=== PATIENT | female | born 1960 | race African-American/Black ===

== ENCOUNTER 2022-04-15 23:54 | Emergency (ER) | payer OTHER, MEDICAID ==
[~2022-04-15] VITALS: Ht 165.1 cm; Wt 59.0 kg
[2022-04-16] MEDS ORDERED: SODIUM CHLORIDE 0.9% 1,000 ML IV ONE (00:30)
[2022-04-16 00:50] LABS: BASOPHILS % 1.2 % (0.0-2.0); EOSINOPHILS % 2.1 % (0.0-5.0); HEMATOCRIT. 31.2 % (36.0-48.0); HEMOGLOBIN. 9.8 g/dL (12.0-16.0); LYMPHOCYTES % 32.1 % (20.0-50.0); MEAN CORPUSCULAR HEMOGLOBIN 26.2 pg (28.0-32.0); MEAN CORPUSCULAR VOLUME 83.5 fL (81.0-99.0); MEAN PLATELET VOLUME 9.5 fl (7.4-10.4); MONOCYTES % 5.9 % (2.0-8.0); NEUTROPHILS % 58.7 % (40.0-76.0); PLATELET 393 x1000/uL (130-400); RED BLOOD CELL COUNT 3.73 mill/uL (4.2-5.4); RED CELL DISTRIBUTION WIDTH 16.6 % (11.6-14.6)
[2022-04-16 00:57] LABS: CHLORIDE 101 mEq/L (98-107)
[2022-04-16 01:05] LABS: BETA HYDROXYBUTYRATE 0.1 mMol/L (0.0-0.3)
[2022-04-16] MEDS ORDERED: ACETAMINOPHEN 325MG TABLET PO ONE (01:45)
[2022-04-16 07:39] VITALS: BP 144/73
== END 2022-04-16 09:00 | disposition short-term general hospital (02) ==
LOC: ER 23:54
DX: E11.65 Type 2 diabetes mellitus with hyperglycemia (principal); R53.1 Weakness; I69.354 Hemiplegia and hemiparesis following cerebral infarction affecting left non-dominant side; Z88.8 Allergy status to other drugs, medicaments and biological substances; Z79.84 Long term (current) use of oral hypoglycemic drugs
CPT/HCPCS: 36415; 72170; 80053; 82010; 82962; 83690; 85025; 93005; 96360; 99285; J7030

== ENCOUNTER 2023-10-18 15:22 | Emergency (ER) | payer OTHER ==
[~2023-10-18] VITALS: Ht 162.6 cm; Wt 85.0 kg
[2023-10-18 15:25] VITALS: O2SAT 100
[2023-10-18] MEDS ORDERED: FUROSEMIDE 40MG/4ML VIAL IV ONE (16:30)
[2023-10-18 16:48] LABS: HEMATOCRIT. 26.3 % (36.0-48.0); HEMOGLOBIN. 8.2 g/dL (12.0-16.0); MEAN CORPUSCULAR HEMOGLOBIN 25.8 pg (28.0-32.0); MEAN CORPUSCULAR VOLUME 83.1 fL (81.0-99.0); PLATELET 294 x1000/uL (130-400); RED BLOOD CELL COUNT 3.17 mill/uL (4.2-5.4); RED CELL DISTRIBUTION WIDTH 17.2 % (11.6-14.6); WHITE BLOOD COUNT 5.3 x1000/uL (4.5-11.0)
[2023-10-18 16:54] LABS: DIFFERENTIAL COMMENT 1
[2023-10-18 17:02] LABS: ALANINE AMINOTRANSFERASE < 7 IU/L (10-49); ALBUMIN 3.1 g/dL (3.2-4.8); ASPARTATE AMINOTRANSFERASE 14 IU/L (<34); BILIRUBIN TOTAL 0.3 mg/dL (0.1-1.0); CALCIUM 8.7 mg/dL (8.7-10.4); CARBON DIOXIDE 20 mEq/L (21-32); CHLORIDE 111 mEq/L (98-107); CREATININE 1.2 mg/dL (0.6-1.0); GLUCOSE 124 mg/dL (70-105); POTASSIUM 4.7 mEq/L (3.5-5.1); PROTEIN TOTAL 6.1 g/dL (6.0-8.3); SODIUM 140 mEq/L (136-145); TROPONIN I HIGH SENSITIVITY 10 ng/L (3.0-34); UREA NITROGEN BLOOD 18 mg/dL (9-23)
[2023-10-18 17:55] LABS: BG FRACTION INSPIRED OXYGEN 21; BG PH 7.395 (7.350-7.450); BG SAMPLE SITE Right Radial; BG VENT MODE ROOM AIR
[2023-10-18 17:56] LABS: BG BASE EXCESS -2.8 mmol/L (-2.0-2.0); BG CARBOXYHEMOGLOBIN 0.3 % (0.5-1.5); BG DEOXYHEMOGLOBIN 4.8 % (0.0-5.0); BG HCO3 ACT 21.7 mmol/L (22.0-26.0); BG METHEMOGLOBIN 0.3 % (0.0-1.5); BG OXYGEN SATURATION 95.2 % (92.0-98.5); BG OXYHEMOGLOBIN 94.6 % (94.0-97.0); BG PCO2 36.2 mmHg (35.0-45.0); BG PO2 78.2 mmHg (75.0-100.0); BG TOTAL HEMOGLOBIN 8.6 g/dL (12.0-18.0)
[2023-10-18 18:17] LABS: ANISOCYTOSIS 1+
[2023-10-18 18:19] LABS: HYPOCHROMASIA 1+; PLATELET ESTIMATE NORMAL
[2023-10-18 19:15] LABS: TROPONIN I HIGH SENSITIVITY 10 ng/L (3.0-34)
[2023-10-18 20:30] VITALS: BP 154/86; PULSE 86; RESP 16; TEMP 97.3
== END 2023-10-18 21:08 | disposition short-term general hospital (02) ==
LOC: ER 15:22 → CANBEDREQ 18:40 → ER 21:08
DX: I50.9 Heart failure, unspecified (principal); E11.9 Type 2 diabetes mellitus without complications; J44.1 Chronic obstructive pulmonary disease with (acute) exacerbation; Z88.8 Allergy status to other drugs, medicaments and biological substances; Z86.73 Personal history of transient ischemic attack (TIA), and cerebral infarction without residual deficits
CPT/HCPCS: 99285; 96374; 71045; 80053; 83880; 85025; 84484; 87804 ×2; 36415; 82805; 82375; 93005; 36600; J1940

== ENCOUNTER 2024-04-29 22:20 | Inpatient (IN) | payer OTHER, MEDICARE ==
[~2024-04-29] VITALS: Ht 162.6 cm; Wt 64.0 kg
[2024-04-30 00:09] LABS: EOSINOPHILS % 1.3 % (0.0-5.0); HEMATOCRIT. 33.2 % (36.0-48.0); HEMOGLOBIN. 10.6 g/dL (12.0-16.0); LYMPHOCYTES % 24.9 % (20.0-50.0); MEAN CORPUSCULAR HEMOGLOBIN 26.4 pg (28.0-32.0); MEAN CORPUSCULAR VOLUME 82.3 fL (81.0-99.0); MEAN PLATELET VOLUME 9.1 fl (7.4-10.4); MONOCYTES % 4.5 % (2.0-8.0); NEUTROPHILS % 68.3 % (40.0-76.0); PLATELET 557 x1000/uL (130-400); RED BLOOD CELL COUNT 4.03 mill/uL (4.2-5.4); RED CELL DISTRIBUTION WIDTH 16.1 % (11.6-14.6); WHITE BLOOD COUNT 6.2 x1000/uL (4.5-11.0)
[2024-04-30 00:17] LABS: CHLORIDE 109 mEq/L (98-107); POTASSIUM 5.1 mEq/L (3.5-5.1); SODIUM 142 mEq/L (136-145)
[2024-04-30 00:18] LABS: CALCIUM 9.9 mg/dL (8.7-10.4); CARBON DIOXIDE 29 mEq/L (21-32)
[2024-04-30 00:23] LABS: CREATININE 1.4 mg/dL (0.6-1.0); GLUCOSE 212 mg/dL (70-105); UREA NITROGEN BLOOD 17 mg/dL (9-23)
[2024-04-30 00:26] LABS: TROPONIN I HIGH SENSITIVITY 9 ng/L (3.0-34)
[2024-04-30 01:38] LABS: TROPONIN I HIGH SENSITIVITY 7 ng/L (3.0-34)
[2024-04-30] MEDS: MAGNESIUM/ALUMINUM HYDROXIDE/SIMETHICONE 30ML UDC PO NR (02:12)
[2024-04-30] MEDS: ASPIRIN 325MG TABLET PO NR (02:13)
[2024-04-30] MEDS: FAMOTIDINE 20MG/2ML VIAL IV NR (02:28)
[2024-04-30] MEDS: MAGNESIUM/ALUMINUM HYDROXIDE/SIMETHICONE 30ML UDC PO STA (02:33)
[2024-04-30] MEDS: FAMOTIDINE 20MG/2ML VIAL IV STA (02:33)
[2024-04-30] MEDS: ASPIRIN 325MG TABLET PO ONE (02:34)
[2024-04-30] MEDS: HYDRALAZINE 20MG/ML VIAL IV ONE (03:39)
[2024-04-30] MEDS ORDERED: HYDRALAZINE 20MG/ML VIAL IV ONE (06:15)
[2024-04-30] MEDS ORDERED: DIAZEPAM 5 MG/ML 2ML SYR IV ONE (06:15)
[2024-04-30] MEDS: IOHEXOL-350 100 ML BOTTLE ONE (07:13)
[2024-04-30 07:19] LABS: IRON 34 ug/dL (50-170)
[2024-04-30 07:20] LABS: TRIGLYCERIDE 109 mg/dL (0-150)
[2024-04-30 07:21] LABS: LDL CHOLESTEROL 145 mg/dL (5-100)
[2024-04-30 07:22] LABS: CHOLESTEROL 229 mg/dL (<200); HDL CHOLESTEROL 61 mg/dL (>65); TOTAL IRON BINDING CAPACITY 216 ug/dl (250-425)
[2024-04-30 07:24] LABS: T4 FREE 1.03 ng/dL (0.89-1.76)
[2024-04-30 08:19] LABS: FOLIC ACID (FOLATE) SERUM 12.89 ng/mL (>5.38)
[2024-04-30 08:38] LABS: VITAMIN B12 SERUM 330 pg/mL (211-911)
[2024-04-30] MEDS: DIAZEPAM 5 MG/ML 2ML SYR IV NR (09:05)
[2024-04-30] MEDS: HYDRALAZINE 20MG/ML VIAL IV NR (09:05)
[2024-04-30] MEDS ORDERED: NITROGLYCERIN 0.4MG TABLET SL SL PRN (10:45)
[2024-04-30] MEDS ORDERED: ZOLPIDEM TARTRATE 5MG TABLET PO PRN (10:45)
[2024-04-30] MEDS ORDERED: GUAIFENESIN 200MG/10ML SUGAR FREE UDC PO PRN (10:45)
[2024-04-30] MEDS ORDERED: DOCUSATE SODIUM 100MG CAPSULE PO PRN (10:45)
[2024-04-30] MEDS ORDERED: MAGNESIUM/ALUMINUM HYDROXIDE/SIMETHICONE 30ML UDC PO PRN (10:45)
[2024-04-30] MEDS ORDERED: ONDANSETRON HCL 4MG/2ML INJ IV PRN (10:45)
[2024-04-30] MEDS ORDERED: IPRATROPIUM/ALBUTEROL 0.5-3(2.5)MG/3ML NEB NEB PRN (10:45)
[2024-04-30] MEDS ORDERED: ACETAMINOPHEN 325MG TABLET PO PRN ×2 (10:45)
[2024-04-30] MEDS: ENOXAPARIN 40MG/0.4ML SYR SUBCUT SCH (11:15)
[2024-04-30] MEDS: AMLODIPINE 10MG TABLET PO SCH (11:15)
[2024-04-30] MEDS: NITROGLYCERIN OINT 1GM/INCH UDPKT TD SCH (11:21)
[2024-04-30 13:00] VITALS: BP 194/94; PULSE 94; RESP 20; TEMP 97.8
[2024-04-30] MEDS: CLONIDINE 0.1MG TABLET PO PRN (13:02)
[2024-04-30 13:15] VITALS: BP 194/94; PULSE 94; RESP 20; TEMP 97.8
[2024-04-30] MEDS ORDERED: ALBU6.7H15 INH (14:28)
[2024-04-30] MEDS ORDERED: UBRO100T PO (14:28)
[2024-04-30] MEDS ORDERED: CARV12.545 PO (14:28)
[2024-04-30] MEDS ORDERED: GABA-532 PO (14:28)
[2024-04-30] MEDS ORDERED: CEFP200T13 PO (14:28)
[2024-04-30] MEDS: HYDRALAZINE HCL 50MG TABLET PO SCH (14:53)
[2024-04-30 16:00] VITALS: BP 194/93; PULSE 92; RESP 20; TEMP 97.5
[2024-04-30 20:00] VITALS: BP 183/84; PULSE 72; RESP 18; TEMP 97.2
[2024-04-30 21:00] LABS: CREATINE KINASE MB FRACTION 0.6 ng/mL (0.5-3.6)
[2024-04-30] MEDS: FAMOTIDINE 20MG TABLET PO SCH (21:34)
[2024-05-01] VITALS: BP 186/90; PULSE 72; RESP 18; TEMP 97.5
[2024-05-01 04:00] VITALS: BP 147/70; PULSE 93; RESP 19; TEMP 97.2
[2024-05-01 06:44] LABS: BASOPHILS % 1.3 % (0.0-2.0); DIFFERENTIAL COMMENT 0; EOSINOPHILS % 0.9 % (0.0-5.0); HEMATOCRIT. 32.5 % (36.0-48.0); HEMOGLOBIN. 10.5 g/dL (12.0-16.0); LYMPHOCYTES % 26.8 % (20.0-50.0); MEAN CORPUSCULAR HEMOGLOBIN 26.2 pg (28.0-32.0); MEAN CORPUSCULAR HGB CONC 32.4 g/dL (31.0-37.0); MEAN PLATELET VOLUME 9.2 fl (7.4-10.4); MONOCYTES % 6.4 % (2.0-8.0); NEUTROPHILS % 64.6 % (40.0-76.0); PLATELET 611 x1000/uL (130-400); RED BLOOD CELL COUNT 4.01 mill/uL (4.2-5.4); RED CELL DISTRIBUTION WIDTH 16.2 % (11.6-14.6); WHITE BLOOD COUNT 7.8 x1000/uL (4.5-11.0)
[2024-05-01 07:01] LABS: CREATINE KINASE MB FRACTION 0.7 ng/mL (0.5-3.6); TROPONIN I HIGH SENSITIVITY 13 ng/L (3.0-34)
[2024-05-01 07:04] LABS: CHLORIDE 106 mEq/L (98-107); POTASSIUM 4.8 mEq/L (3.5-5.1); SODIUM 140 mEq/L (136-145)
[2024-05-01 07:05] LABS: CALCIUM 10.1 mg/dL (8.7-10.4); CARBON DIOXIDE 27 mEq/L (21-32)
[2024-05-01 07:10] LABS: CREATININE 1.8 mg/dL (0.6-1.0); GLUCOSE 179 mg/dL (70-105); UREA NITROGEN BLOOD 20 mg/dL (9-23)
[2024-05-01 07:12] LABS: ALANINE AMINOTRANSFERASE < 7 IU/L (10-49); ALBUMIN 4.1 g/dL (3.2-4.8); ASPARTATE AMINOTRANSFERASE 9 IU/L (<34); BILIRUBIN TOTAL 0.3 mg/dL (0.1-1.0); CREATINE KINASE 39 IU/L (34-145); PHOSPHORUS 3.4 mg/dL (2.5-4.9)
[2024-05-01 07:13] LABS: PROTEIN TOTAL 6.7 g/dL (6.0-8.3)
[2024-05-01 08:00] VITALS: BP 180/83; PULSE 74; RESP 20; TEMP 97.7
[2024-05-01] MEDS: ASPIRIN 81MG EC TABLET PO SCH (09:16)
[2024-05-01 12:00] VITALS: BP 152/69; PULSE 92; RESP 18; TEMP 97.6
[2024-05-01 16:00] VITALS: BP 133/79; PULSE 79; RESP 20; TEMP 97.7
[2024-05-01 17:12] VITALS: BP 152/69; PULSE 96; TEMP 97.6; O2SAT 98
== END 2024-05-01 20:49 | disposition short-term general hospital (02) | DRG 304 ==
LOC: ER 22:20 → 5WST 04-30 04:40 → EDBEDREQTM 04-30 05:04 → EDBEDREQ 04-30 05:04 → 8WST 04-30 12:49
PROVIDERS: ADMIT Internal Medicine; ATTEND Internal Medicine
DX: I16.1 Hypertensive emergency (principal); N17.0 Acute kidney failure with tubular necrosis; D63.8 Anemia in other chronic diseases classified elsewhere; E11.9 Type 2 diabetes mellitus without complications; E78.00 Pure hypercholesterolemia, unspecified; I11.0 Hypertensive heart disease with heart failure; I50.9 Heart failure, unspecified; J44.89 Other specified chronic obstructive pulmonary disease; Z79.02 Long term (current) use of antithrombotics/antiplatelets
CPT/HCPCS: 36415; 71045; 71275; 80048; 80053; 80061; 82550; 82553; 82607; 82746; 82962; 83036; 83540; 83550; 83735; 83880; 84100; 84439; 84443; 84484; 85025; 85379; 99285; J0360; J1650; J3490; Q9967